=== PATIENT | female | born 1940 | race Caucasian/White ===

== ENCOUNTER 2025-07-01 21:30 | Inpatient (IN) | payer MEDICARE, SELFPAY ==
--- NOTE | 2025-07-01 21:43 | PC.NURSE ---
Blood glucose level is 112 mg/dL.
[2025-07-01 21:53] VITALS: BP 89/56; PULSE 113; RESP 27; TEMP 38.7; O2SAT 96; BMI 25.7
--- NOTE | 2025-07-01 21:53 | HMH.EDGENADL ---
Discharge Plan Disposition Patient Disposition: Admitted Clinical Impressions Clinical Impression: Unresponsive, Need for comfort care, Alzheimer disease Discharge ED Provider: Jamaica Ross General Adult HPI General Stated complaint: Altered Mental Status Time Seen by Provider: 07/01/25 21:46 History of Present Illness HPI narrative: Patient is a 84-year-old female from [facility] who presents today unresponsive. EMS were unable to place an IV but they did find that the patient was DNR and spoke to the patient's who confirmed the patient was DNR and they brought the patient to the hospital. Further history is unable to be obtained initially. [facility] Disclaimer: The information contained in this section may have been updated after the patient was seen, as this information can be updated by other users. Social History Smoking Status: Never smoker alcohol intake: never current occupational status: other Travel in the last 8 weeks?: None ROS Obtained: Yes All systems reviewed & no additional complaints except as documented Physical Exam General General appearance: obtunded (Warm to the touch) Respiratory Respiratory exam: Present normal lung sounds bilaterally Cardiovascular Cardiovascular exam: Present regular rate and normal rhythm Neurological Exam Neurological exam: Present other (GCS of 3 minimally responsive does have brainstem reflexes intact) Medical Decision Making Medical Records Screening: Per USPSTF and CDC recommendations, given the prevalence of disease in our region, it is our hospital?s policy to screen for HIV and viral Hepatitis for all patients aged 18 and over and those with ongoing risk factors. Mariano Inquiry Pt receiving controlled substance: No Orders (Tests/Meds): ORDERS Category Date Time Status Consult to Case Management [CONS] Routine Cons 07/01/25 21:46 Active Medical Decision Narrative: 84-year-old presenting today unresponsive with a GCS of 3 warm to the touch likely septic. Also has many other things in the differential including hemorrhage stroke metabolic abnormalities etc. She is obviously critically ill and at the end of her life. She has been in a senior living for an extended period of time I was able to speak to her Kelton who is her POA. He states that they have been 66 years and that she has been gone for an extended period of time as she had end-stage Alzheimer's disease and states she does not have any quality of life to return to. He states that she has DNR and he just wants to make her comfortable. He wants no aggressive interventions that are to be done. Given the fact that it is late at night and we do not have hospice care available to immediately intervene on this patient will be admit the patient for care management to involve hospice and send the patient back to the senior living if she felt survives the night. No further interventions will be done other than keeping the patient comfortable per the patient's wishes and through her POA. Critical Care Critical Care Time Critical Care Time: Yes Attestation: On , the high probability of a clinically significant, sudden or life threatening deterioration of the following system(s) required my full and direct attention, intervention and personal management. The time I documented below is in addition to time spent performing reported procedures but includes the following listed in this critical care notation. Total Time Total Critical Care Time: 35
[2025-07-01 21:54] VITALS: BP 99/47; PULSE 114; RESP 28; TEMP 37.6; O2SAT 97; BMI 21.4
[2025-07-01 22:00] VITALS: BP 85/44; PULSE 114; RESP 27; O2SAT 96
[2025-07-01 22:25] VITALS: BP 85/44; PULSE 113; RESP 25; TEMP 38.6; O2SAT 96
[2025-07-01 22:30] VITALS: BP 92/46; PULSE 115; RESP 26; O2SAT 97
--- NOTE | 2025-07-01 22:37 | EXP.HP ---
History of Present Illness *Admission Date: 07/01/25 *Reason for visit:: fever, unresponsiveness, comfort care *History of present illness: Patient with past medical history of severe Alzheimer's has lived in senior care for over 2 years. Patient brought into the hospital with febrile illness and unresponsiveness. Long goals of care discussion had with patient's son at bedside by myself and emergency room physician. Son states that patient minimally interactive in senior care today, and has extremely poor quality of life with contractures. Patient's son requested DNR/DNI Comfort Care status. Patient's also agrees to DNR/DNI/comfort care measures. Patient nonverbal, and unable to communicate with me at time of admission assessment. Discussed pros/cons of IV antibiotic therapy with patient's son, and son does not want IV antibiotics or any heroic measures at this time. PT GCS 3 at time of my ED eval. [facility] Disclaimer: The information contained in this section may have been updated after the patient was seen, as this information can be updated by other users. Social History (Updated 07/01/25 @ 21:56 by Jamaica Ross MD) Smoking Status: Never smoker alcohol intake: never current occupational status: other Travel in the last 8 weeks?: None Have you lived/traveled outside [place] in past 30 days?: No Contact w/someone who lives/traveled outside [place] past 30 days?: No Exposure to someone with infectious disease in past 14 days?: No Do you have a fever (greater than 100.4 F or 38 C)?: No Have you tested positive for COVID-19?: No Exposed to someone with COVID-19 in past 14 days?: No Do you have a sore throat?: No Do you have a cough?: No Do you have any weakness?: No Do you have any diarrhea?: No Are you experiencing any unusual bleeding?: No Do you have any muscle aches/pain?: No Do you have any abdominal pain?: No Are you experiencing loss of taste or smell?: No Review of Systems Review of Systems Review of systems:: unable to obtain Meds Home Medications and Allergies New Prescriptions to Start Prescriptions: Allergies Allergy/AdvReac Type Severity Reaction Status Date / Time No Known Allergies Allergy Verified 07/01/25 21:58 Exam Data for Last 24 hours Vital signs and Labs for Last 24 Hours: Temp Pulse Resp BP Pulse Ox O2 Del Method O2 Flow Rate 101.4 F H 113 H 25 H 85/44 L 96 Nasal Cannula 2 07/01/25 22:25 07/01/25 22:25 07/01/25 22:25 07/01/25 22:25 07/01/25 21:53 07/01/25 22:25 07/01/25 22:25 I & O for Last 24 hours: Intake & Output 06/28/25 06/29/25 06/30/25 07/01/25 23:59 23:59 23:59 23:59 Weight 68.039 kg Constitutional Constitutional: severe distress, chronically ill appearing, diaphoretic and obtunded *Routine HEENT Exam Head: Present normocephalic and atraumatic Eye: Present EOMI and normal accommodation ENT: Present mucous membranes dry *Routine Neck Exam Neck: Present supple and full ROM *Routine Respiratory Exam Respiratory: Present diminished air movement *Routine Cardiovascular Exam Cardiovascular: Present tachycardia *Routine Abdominal Exam Abdominal: Present soft and normoactive bowel sounds *Routine Rectal Exam Rectal:: deferred *Routine Genitalia Exam Genitalia:: deferred *Routine Skin Exam Skin: Present intact and warm *Routine Neurological Exam Neurological: Present altered mental status Comments: disoriented Assessment and Plan *Assessment and plan (1) Admission for hospice care: Status: Acute Category: Medical Code(s): Z51.5 - Encounter for palliative care (2) Need for comfort care: Status: Acute Category: Medical (3) Alzheimer disease: Status: Acute Category: Medical Code(s): G30.9 - Alzheimer's disease, unspecified; F02.80 - Dementia in other diseases classified elsewhere, unspecified severity, without behavioral disturbance, psychotic disturbance, mood disturbance, and anxiety (4) Febrile illness: Status: Acute Category: Medical Code(s): R50.9 - Fever, unspecified Plan 84-year-old with severe Alzheimer's bedbound, living in senior care for over 2 years presents with decreased p.o. intake, febrile illness, and minimally interactive with GCS 3. Patient's son and family have opted for comfort care measures. Problems listed below: Admission for Hospice Comfort care measures: ? Thoroughly discussed pros/cons of heroic measures including IV antibiotic therapy at bedside with pt son. Son wants comfort care measures only without any heroic measures. Therefore no antibiotics or IV fluids. Morphine 2 mg IV every 2 as needed pain or air hunger. Ativan 2 mg IV Q2 as needed pain or air hunger. Zofran 4 mg IV every 6 as needed nausea vomiting. Phenergan 25 mg IV every 6 as needed nausea vomiting. Haldol 2 mg IV Q2 as needed agitation/hallucinations. O2 as needed to keep patient comfortable Febrile illness ? Presents with BP 88/44, pulse 113, respiration 25, and temperature 101.4 ?F. Likely septic. Patient with GCS 3 and lacks capacity to make decisions. Discussed issue with son at bedside, and son declines antibiotics/maintenance IV fluids. No lab work or her work measures per son's directives. PPx none CODE STATUS comfort care FEN pur?ed diet MDM ? I spoke at length with emergency room provider about patient care today. ?Patient's son acted as independent historian during my interview patient today. ? I made decision to admit patient to hospital for initiation of hospice measures and comfort care management. 35 minutes of total care time spent with patient by myself, Kirit Perez MD 07/01/2025 Discharge planning: Expect patient to within next 1 to 7 days. Consult to case management to initiate hospice arrangements.
[2025-07-02 04:00] VITALS: BMI 22.5
[2025-07-02 08:20] VITALS: BP 149/67; PULSE 132; RESP 10; TEMP 38.2; O2SAT 94
[2025-07-02] MEDS: ACETAMINOPHEN 1,000MG/100ML VIAL 1000 MG IV (10:04)
[2025-07-02 10:26] VITALS: TEMP 38
[2025-07-02 13:02] VITALS: TEMP 36.8
[2025-07-02] MEDS: MORPHINE 2MG/ML SYRINGE 2 MG IV (15:34)
--- NOTE | 2025-07-02 16:00 | PC.NURSE ---
patient appeared to become restless 1533, morphine given per MAR for comfort care.
[2025-07-02 17:23] VITALS: TEMP 36.8
[2025-07-02 20:00] VITALS: BP 79/48; PULSE 111; RESP 24; TEMP 36.9; O2SAT 94
--- NOTE | 2025-07-02 22:22 | EXP.PN ---
Subjective *Date: 07/03/25 *Time: 22:22 Exam Data for Last 24 hours Vital signs and Labs for Last 24 Hours: Temp Pulse Resp BP Pulse Ox O2 Del Method O2 Flow Rate 99.1 F 102 H 22 68/40 L 95 Nasal Cannula 2 07/03/25 08:00 07/03/25 08:00 07/03/25 08:00 07/03/25 08:00 07/03/25 08:00 07/03/25 17:00 07/03/25 17:00 I & O for Last 24 hours: Intake & Output 06/30/25 07/01/25 07/02/25 07/03/25 23:59 23:59 23:59 23:59 Intake Total 0 / 0 0 / 0 Output Total 100 / 100 Balance -100 / -100 0 / 0 Weight 56.79 kg 59.79 kg 55.837 kg
[2025-07-03 04:00] VITALS: BMI 20.9
[2025-07-03 08:00] VITALS: BP 68/40; PULSE 102; RESP 22; TEMP 37.3; O2SAT 95
--- NOTE | 2025-07-03 13:01 | P.DS_ITS ---
General Admission date:: 07/01/25 HPI HPI HPI: Patient with past medical history of severe Alzheimer's has lived in skilled nursing for over 2 years. Patient brought into the hospital with febrile illness and unresponsiveness. Long goals of care discussion had with patient's son at bedside by myself and emergency room physician. Son states that patient minimally interactive in skilled nursing today, and has extremely poor quality of life with contractures. Patient's son requested DNR/DNI Comfort Care status. Patient's also agrees to DNR/DNI/comfort care measures. Patient nonverbal, and unable to communicate with me at time of admission assessment. Discussed pros/cons of IV antibiotic therapy with patient's son, and son does not want IV antibiotics or any heroic measures at this time. PT GCS 3 at time of my ED eval. Hospital Course Hospital Course Hospital Course: Marilyn Hoffman is a 84-year-old with severe Alzheimer's bedbound, living in skilled nursing for over 2 years presented with decreased p.o. intake, febrile illness, and minimally interactive with GCS 3. Patient's son and family have opted for comfort care measures. Problems listed below: Admission for Hospice Comfort care measures: #Suspected sepsis due to UTI ? Presents presented with BP 88/44, pulse 113, respiration 25, and temperature 101.4 ?F. Likely sepsis from UTI. Patient with GCS 3 and lacks capacity to make decisions. Discussed issue with son at bedside, and son declines antibiotics/maintenance IV fluids. No lab work or her work measures per son's directives. ? Thoroughly discussed pros/cons of heroic measures including IV antibiotic therapy at bedside with pt son. Son wants comfort care measures only without any heroic measures. Therefore no antibiotics or IV fluids. ? Hospice care consulted, this will be coordinated with patient returns back to [facility]. ? Discharged with morphine ? Morphine 2 mg IV every 2 as needed pain or air hunger. Ativan 2 mg IV Q2 as needed pain or air hunger. Zofran 4 mg IV every 6 as needed nausea vomiting. Phenergan 25 mg IV every 6 as needed nausea vomiting. Haldol 2 mg IV Q2 as needed agitation/hallucinations. O2 as needed to keep patient comfortable Total time spent on discharge: 31 minutes on chart review, counseling, documentation, and direct care with patient. Exam Data for Last 24 hours Vital signs and Labs for Last 24 Hours: Temp Pulse Resp BP Pulse Ox O2 Del Method O2 Flow Rate 99.1 F 102 H 22 68/40 L 95 Nasal Cannula 2 07/03/25 08:00 07/03/25 08:00 07/03/25 08:00 07/03/25 08:00 07/03/25 08:00 07/03/25 09:00 07/03/25 09:00 I & O for Last 24 hours: Intake & Output 06/30/25 07/01/25 07/02/25 07/03/25 23:59 23:59 23:59 23:59 Intake Total 0 / 0 0 / 0 Output Total 100 / 100 Balance -100 / -100 0 / 0 Weight 56.79 kg 59.79 kg 55.837 kg Constitutional Constitutional: no acute distress Comments: Obtunded *Routine Respiratory Exam Respiratory: Present CTA bilaterally DS: Diagnosis Discharge Diagnosis (1) Admission for hospice care: Status: Acute Code(s): Z51.5 - Encounter for palliative care (2) Need for comfort care: Status: Acute (3) Alzheimer disease: Status: Acute Code(s): G30.9 - Alzheimer's disease, unspecified; F02.80 - Dementia in other diseases classified elsewhere, unspecified severity, without behavioral disturbance, psychotic disturbance, mood disturbance, and anxiety (4) Febrile illness: Status: Acute Code(s): R50.9 - Fever, unspecified Meds Home Medications and Allergies Home Medications ?Medication ?Instructions ?Recorded ?Confirmed ?Type morphine 20 mg/5 mL (4 mg/mL) oral 5 mg (1.25 mL) PO Q 4H PRN Air 07/03/25 Rx solution hunger #100 mL New Prescriptions to Start Prescriptions: Chacho Rose Allergies Allergy/AdvReac Type Severity Reaction Status Date / Time No Known Allergies Allergy Verified 07/01/25 21:58 Discharge Plan Disposition Patient Disposition: Hospice - Medical Facility Condition: Serious Discharge Order Discharge Orders: Discharge Order (Routine); Ordered 07/03/25 Ordered By: Chacho West Follow up Plan Prescriptions/Medication Reconciliation: New morphine 20 mg/5 mL (4 mg/mL) solution 5 mg PO Q4H PRN (Reason: Air hunger) Qty: 100 0RF Problem Reconciliation Problems Reviewed?: Yes Patient Discharge Instructions Patient Instructions: DI for Fever (Symptom) in Adults Print Language: Omani Providers Primary Care Provider: Cameron Milner Provider: Chacho West Attending Provider: Chacho West
--- NOTE | 2025-07-04 11:54 | SW/DCPLANNER ---
Per Gretta w/ [facility] patient returned to their facility w/ Palliative Care not w/ Hospice.
== END 2025-07-03 17:19 | disposition hospice, inpatient (51) | DRG 951 ==
LOC: ER 22:52 → 2ND 07-02 01:28
PROVIDERS: Admitting Provider Student in an Organized Health Care Education/Training Program; Emergency Provider Student in an Organized Health Care Education/Training Program; PCP Family Medicine; Visit Provider Student in an Organized Health Care Education/Training Program
DX: Z51.5 Encounter for palliative care (principal); A41.9 Sepsis, unspecified organism; N39.0 Urinary tract infection, site not specified; R40.4 Transient alteration of awareness; G30.9 Alzheimer's disease, unspecified; F02.80 Dementia in other diseases classified elsewhere, unspecified severity, without behavioral disturbance, psychotic disturbance, mood disturbance, and anxiety; Z66 Do not resuscitate; Z74.01 Bed confinement status
CPT/HCPCS: 51702; 99284; J0131; J2270